=== PATIENT | female | born 1975 | race Caucasian/White ===

== ENCOUNTER 2023-07-12 07:33 | Day surgery (SDC) | payer BC, OTHER ==
[~2023-07-12 07:33] MED LIST: Lactated Ringers 1,000 ML IV SCH
[2023-07-12] MEDS ORDERED: Propofol 200 MG/20 ML SDV ONE (08:20)
[2023-07-12] MEDS ORDERED: fentaNYL 100 MCG/2 ML SDV ONE (08:20)
[2023-07-27] MEDS ORDERED: Lactated Ringers 1,000 ML IV SCH (07:00)
== END 2023-07-12 11:30 | disposition home or self-care (01) ==
LOC: VM.SDS 07:33
PROVIDERS: ATTEND Family Medicine
DX: R13.13 Dysphagia, pharyngeal phase (principal); K44.9 Diaphragmatic hernia without obstruction or gangrene; K21.9 Gastro-esophageal reflux disease without esophagitis; Z80.0 Family history of malignant neoplasm of digestive organs; Z79.899 Other long term (current) drug therapy; Z88.2 Allergy status to sulfonamides; Z91.013 Allergy to seafood
CPT/HCPCS: 00731; 43239; J2704; J3010